=== PATIENT | male | born 2005 | race Two or more races ===

== ENCOUNTER 2025-05-19 15:29 | Emergency (ER) | payer SELFPAY ==
[~2025-05-19] VITALS: Ht 170.2 cm; Wt 65.8 kg
[2025-05-19 15:42] VITALS: BP 144/73; TEMP 97.9; O2SAT 99
[2025-05-19] MEDS ORDERED: IBUPROFEN 600 MG TABLET ONE (16:26)
[2025-05-19] MEDS ORDERED: ACETAMINOPHEN ES 500 MG TABLET ONE (16:26)
[2025-05-19] MEDS: IBUPROFEN 600 MG TABLET PO ONE (16:30)
[2025-05-19] MEDS: ACETAMINOPHEN ES 500 MG TABLET PO ONE (16:30)
[2025-05-19] MEDS ORDERED: METH-649 PO (18:21)
[2025-05-19] MEDS ORDERED: IBUP-1490 PO (18:21)
== END 2025-05-19 18:34 | disposition home or self-care (01) ==
LOC: ER 15:33
DX: M54.50 Low back pain, unspecified (principal); R07.89 Other chest pain; V89.2XXA Person injured in unspecified motor-vehicle accident, traffic, initial encounter; Y93.89 Activity, other specified; Y92.89 Other specified places as the place of occurrence of the external cause; Y99.9 Unspecified external cause status
CPT/HCPCS: 71100-TC; 72100-TC